=== PATIENT | female | born 1955 | race Caucasian/White ===

== ENCOUNTER 2017-11-03 07:04 | Emergency (ER) | payer OTHER ==
[2017-11-03] MEDS ORDERED: morphine CARPU-JECT 4 MG/1 ML DISP.SYRIN IVPUSH ONE ×2 (07:44→08:25)
[2017-11-03 07:53] VITALS: BMI 37.8
[2017-11-03] MEDS ORDERED: MORPHINE SULFATE 10 MG/1 ML *VIAL ONE ×2 (07:53→08:38)
[2017-11-03 08:10] LABS: BASO % 0.8 % (0-2.0); HEMATOCRIT 32.7 % (32.4-45.2); HEMOGLOBIN 11.4 GM/dL (10.7-15.3); MCH 28.8 pg (25.7-33.7); MEAN CELL VOLUME 82.4 fl (80-96); MEAN PLT VOLUME 7.9 fl (7.5-11.1); MONO % 6.8 % (3.8-10.2); NEUT % 67.4 % (42.8-82.8); PLATELET COUNT 380 K/MM3 (134-434); RBC 3.97 M/mm3 (3.60-5.2); RDW 14.2 % (11.6-15.6); WHITE BLOOD COUNT 8.4 K/mm3 (4.0-10.0)
[2017-11-03 08:30] LABS: ALBUMIN 3.9 g/dl (3.4-5.0); ANION GAP 12 (8-16); BILIRUBIN,TOTAL 0.3 mg/dL (0.2-1.0); BLOOD UREA NITROGEN 15 mg/dL (7-18); CALCIUM 9.7 mg/dL (8.5-10.1); CHLORIDE 105 mmol/L (98-107); CO2 22 mmol/L (21-32); GLUCOSE,RANDOM 100 mg/dL (74-106); POTASSIUM 3.8 mmol/L (3.5-5.1); SGOT/AST 11 U/L (15-37); SGPT/ALT 13 U/L (12-78); SODIUM 139 mmol/L (136-145); TOT PROT 7.9 g/dl (6.4-8.2)
[2017-11-03 08:31] LABS: ALK PHOS 116 U/L (45-117)
--- NOTE | 2017-11-03 08:51 | PDOC ---
History of Present Illness - General Chief Complaint: Back Pain Stated Complaint: PAIN Time Seen by Provider: 11/03/17 07:26 - History of Present Illness Initial Comments: 11/03/17 08:46 "The patient is a 61-year-old female, with a past medical history of spinal stenosis, sciatica, scoliosis, cauda equina syndrome s/p surgery 07/2017, arthritis, pericarditis, bladder cancer (1996- in remission), who presents to the ED with 5 days of acute on chronic lower back pain. The patient reports that she had surgery back in July 2017 at [facility] for cauda equina. She reports post-op complication of wound infection and sepsis. Pt was readmitted and had a wound vac placed. Since then, she has been at home and taking oxycodone as needed for pain. The patient has been following up with her pain management doctor and her neurosurgeon, but she ran out of her pain meds and was unable to make appointments with her doctors. Her lower back pain has progressively worsened and is now radiating down her legs bilaterally. This pain is similar to her usual pain, but it has never been this severe. Patient reports that she took Advil PM at 1AM today with no relief of her symptoms. Pt denies any new leg weakness or numbness, though she has baseline leg weakness since the surgery. Denies any incontinence of bowel or bladder. The patient denies any fever, chills, nausea, vomiting, diarrhea, or abdominal pain. Denies any chest pain or shortness of breath. Allergies: Meperidine Surgical History: Appendectomy, hernia repair, C-sections. " Past History - Past Medical History Allergies/Adverse Reactions: Allergies Allergy/AdvReac Type Severity Reaction Status Date / Time meperidine [Meperidine] Allergy Severe Difficulty Verified 11/03/17 07:41 Breathing Home Medications: Ambulatory Orders Alprazolam [Xanax] 1 mg PO TID 02/16/14 Celecoxib [Celebrex] 200 mg PO DAILY 02/16/14 Diphenoxylate HCl/Atrop Sulf [Diphenoxylate-Atropine Tablet] 1 each PO PRN PRN 02/16/14 Oxybutynin Chloride [Oxybutynin Chloride ER] 15 mg PO DAILY 02/16/14 Oxycodone HCl [Oxycontin] 30 mg PO TID 02/16/14 Phenazopyridine HCl [Pyridium] 100 mg PO BID 02/16/14 Ropinirole HCl 5 mg PO BID 02/16/14 Zolpidem Tartrate 10 mg PO HS 02/16/14 Anemia: No Asthma: No Cancer: Yes (bladder ca) Cardiac Disorders: Yes (percarditis) CVA: No COPD: No Dementia: No Diabetes: No Dialysis: No GI Disorders: Yes (hernias) Disorders: No HTN: No Hypercholesterolemia: No Kidney Stones: No Liver Disease: No Seizures: No Thyroid Disease: No - Surgical History Abdominal Surgery: Yes (hernias) Appendectomy: Yes Cardiac Surgery: No Cholecystectomy: No Lung Surgery: No Neurologic Surgery: No - Immunization History Td Vaccination: Yes TDAP Vaccination: Yes Immunization Up to Date: Yes - Suicide/Smoking/Psychosocial Hx Smoking Status: No Smoking History: Unknown if ever smoked Number of Cigarettes Smoked Daily: 0 Hx Alcohol Use: No Drug/Substance Use Hx: No Substance Use Type: None Review of Systems - Review of Systems Comments:: 11/03/17 08:49 "GENERAL/CONSTITUTIONAL: No fever or chills. No weakness. HEAD, EYES, EARS, NOSE AND THROAT: No change in vision. No ear pain or discharge. No sore throat. CARDIOVASCULAR: No chest pain or shortness of breath. RESPIRATORY: No cough, wheezing, or hemoptysis. GASTROINTESTINAL: No nausea, vomiting, diarrhea or constipation. GENITOURINARY: No dysuria, frequency, or change in urination. MUSCULOSKELETAL: (+)Lower back pain. No joint swelling or pain. No neck pain. SKIN: No rash NEUROLOGIC: No headache, vertigo, loss of consciousness, or change in strength/ sensation. ENDOCRINE: No increased thirst. No abnormal weight change. HEMATOLOGIC/LYMPHATIC: No anemia, easy bleeding, or history of blood clots. ALLERGIC/IMMUNOLOGIC: No hives or skin allergy. " *Physical Exam - Vital Signs Last Vital Signs Temp Pulse Resp BP Pulse Ox 98 F 88 22 154/119 98 11/03/17 07:26 11/03/17 07:26 11/03/17 07:26 11/03/17 07:26 11/03/17 07:26 - Physical Exam Comments: 11/03/17 08:49 "GENERAL: Awake, alert, and fully oriented, in no acute distress. HEAD: No signs of trauma EYES: PERRLA, EOMI, sclera anicteric, conjunctiva clear ENT: Auricles normal inspection, hearing grossly normal, nares patent, oropharynx clear without exudates. Moist mucosa NECK: Nontender, no stepoffs, Normal ROM, supple, no lymphadenopathy, JVD, or masses LUNGS: Breath sounds equal, clear to auscultation bilaterally. No wheezes, and no crackles HEART: Regular rate and rhythm, normal S1 and S2, no murmurs, rubs or gallops ABDOMEN: Soft, nontender, normoactive bowel sounds. No guarding, no rebound. No masses EXTREMITIES: Normal range of motion, no edema. No clubbing or cyanosis. No cords, erythema, or tenderness NEUROLOGICAL: Cranial nerves II through XII intact. 5/5 strength and sensation in upper extremities, 4/5 strength in BLE, sensation intact, Normal speech, normal cerebellar function SKIN: Warm, Dry, normal turgor, no rashes or lesions noted. BACK: + Wound vac in place, no surrounding erythema, well healing ED Treatment Course - LABORATORY CBC & Chemistry Diagram: 11/03/17 08:00 11/03/17 08:00 - ADDITIONAL ORDERS Additional order review: Laboratory Results 11/03/17 08:00 Sodium 139 Potassium 3.8 Chloride 105 Carbon Dioxide 22 Anion Gap 12 BUN 15 Creatinine 1.0 Creat Clearance w eGFR 56.37 Random Glucose 100 Calcium 9.7 Total Bilirubin 0.3 AST 11 L ALT 13 Alkaline Phosphatase 116 Total Protein 7.9 Albumin 3.9 11/03/17 08:00 RBC 3.97 MCV 82.4 MCHC 35.0 RDW 14.2 D MPV 7.9 Neutrophils % 67.4 D Lymphocytes % 23.0 Monocytes % 6.8 Eosinophils % 2.0 Basophils % 0.8 - Medications Given in the ED: ED Medications Discontinued Medications Generic Name Dose Route Start Last Admin Trade Name Freq PRN Reason Stop Dose Admin Morphine Sulfate 6 mg 11/03/17 07:44 11/03/17 07:51 Morphine Injection - IVPUSH 11/03/17 07:45 6 mg ONCE ONE Administration Morphine Sulfate 10 mg 11/03/17 08:25 11/03/17 08:36 Morphine Injection - IVPUSH 11/03/17 08:26 10 mg ONCE ONE Administration Medical Decision Making - Medical Decision Making 11/03/17 08:50 61 F with acute on chronic lower back pain. No new neuro deficits on exam. Pt with no signs of wound infection, no signs of systemic illness. No evidence of new spinal cord injury. - Labs - Pain control - Reassess 11/03/17 09:39 Labs wnl Pt reassessed - has now received 16mg morphine IV in total, still requesting pain medication. Pt observed in ED talking to neighboring patients and on the phone, in no acute distress, resting comfortably. Pt questioned regarding her pain management doctor. States she is unable to recall their name. Review of [facility] reveals multiple prescriptions for narcotic pain medications from several providers. Given pt's stable vitals, normal labwork, and well appearance, I do not believe pt is having an acute emergency at this time. Will provide pain control and DC with f/u with her pain management doctor. Pt is well appearing, with normal vitals. Clinically stable for DC at this time. I discussed the physical exam findings, ancillary test results and final diagnoses with the patient. I answered all of the patient's questions. The patient was satisfied with the care received and felt comfortable with the discharge plan and treatment plan. The patient agrees to follow up with the primary care physician within 24-72 hours. *DC/Admit/Observation/Transfer Diagnosis at time of Disposition: Back pain - Discharge Dispostion Disposition: HOME - Referrals Referrals: Louie Chavarria MD [Primary Care Provider] - - Patient Instructions Printed Discharge Instructions: DI for Low Back Pain Additional Instructions: Take one tablet of dilaudid every 8 hours as needed for pain. You MUST follow up with your pain management doctor for further pain control. If you experience worsening pain, weakness or numbness in your legs, fevers, or any other concerning symptoms, return to the ER immediately. - Post Discharge Activity - Attestations Physician Attestion: 11/03/17 10:16 I, Dr. Jhon Wyatt MD, attest that this document has been prepared under my direction and personally reviewed by me in its entirety. I further attest, that it accurately reflects all work, treatment, procedures and medical decision -making performed by me.
[2017-11-03] MEDS ORDERED: HYDROmorphone HCL 2 MG TABLET PO ONE ×2 (09:32→11:18)
[2017-11-03] MEDS ORDERED: HYDROmorphone HCL 2 MG TABLET ONE ×2 (09:45→11:28)
[2017-11-03] MEDS ORDERED: LORazepam 2 MG/ML SDV VIAL ONE (11:29)
[2017-11-03 12:54] VITALS: BP 139/100; PULSE 84; TEMP 98
== END 2017-11-03 14:10 | disposition home or self-care (01) ==
LOC: JER 07:04
PROC: 3E033NZ Introduction of Analgesics, Hypnotics, Sedatives into Peripheral Vein, Percutaneous Approach (ICD-10-PCS; principal; 2017-11-03)
DX: M54.5 Low back pain (principal); Z87.39 Personal history of other diseases of the musculoskeletal system and connective tissue; Z85.51 Personal history of malignant neoplasm of bladder; Z86.79 Personal history of other diseases of the circulatory system
CPT/HCPCS: 36415; 80053; 85025; 96374; 99282-25